=== PATIENT | female | born 1965 | race Hispanic/Latino ===

== ENCOUNTER → 2018-01-16 | Outpatient (CLI) | payer OTHER ==
[~2018-01-16] MED LIST: AA8/1CAP3 PO; AMLO10TA6 PO; ATOR40TA69 PO; CHOL100034 PO; DOXY100T2 PO; FERR-82 PO; GABA-531 PO; INSNOV IVP; INSU100V12 SQ; INSU200I SQ; LEVO125 PO; LISI40TA4 PO; METF-446 PO; OMEP20CA10 PO; RIVA20TA PO; TRAM50TA2 PO
== END | disposition home or self-care (01) ==
LOC: RAH 11:07
PROVIDERS: ATTEND Family Medicine
DX: R60.0 Localized edema (principal); E11.9 Type 2 diabetes mellitus without complications; Z86.718 Personal history of other venous thrombosis and embolism; Z72.89 Other problems related to lifestyle
CPT/HCPCS: 93971

== ENCOUNTER → 2022-02-16 | Outpatient (CLI) | payer BC ==
[~2022-02-16] MED LIST changes: +AMLO-258 PO; -AMLO10TA6 PO; -LISI40TA4 PO; +LISI40TA9 PO; -OMEP20CA10 PO; +OMEP20CA12 PO
== END | disposition home or self-care (01) ==
LOC: RAH 12:41
PROVIDERS: ATTEND Family Medicine
DX: M79.604 Pain in right leg (principal)
CPT/HCPCS: 93971

== ENCOUNTER 2023-04-07 10:52 | Emergency (ER) | payer BC, OTHER ==
[~2023-04-07] VITALS: Ht 167.6 cm; Wt 110.7 kg
[2023-04-07 12:21] LABS: BASOPHILS # (AUTO) 0.06 K/uL (0.00-0.20); BASOPHILS % (AUTO) 0.5 % (0.0-5.0); EOSINOPHILS # (AUTO) 0.06 K/uL (0.00-0.70); EOSINOPHILS % (AUTO) 0.5 % (0.0-8.0); HEMATOCRIT 42.6 % (36-48); IMMATURE GRANULOCYTE ABSOLUTE 0.08 K/uL (0-1); LYMPHOCYTES # (AUTO) 1.5 K/uL (1.0-4.8); LYMPHOCYTES % (AUTO) 11.6 % (21.0-51.0); MEAN CORPUSCULAR HEMOGLOBIN 28.5 pg (27.0-33.0); MEAN CORPUSCULAR HGB CONC 33.6 g/dL (32.0-36.0); MEAN CORPUSCULAR VOLUME 84.9 fL (79-99); MONOCYTES # (AUTO) 0.7 K/uL (0.1-1.0); MONOCYTES % (AUTO) 5.5 % (3.0-13.0); NEUTROPHILS # (AUTO) 10.3 K/uL (1.8-7.7); NEUTROPHILS % (AUTO) 81.3 % (40.0-77.0); PLATELET COUNT (AUTO) 267 K/uL (130-400); RED BLOOD CELL COUNT(AUTO) 5.02 MIL/uL (4.00-5.50); RED CELL DISTRIBUTION WIDTH 14.5 % (11.0-15.5); WHITE BLOOD COUNT (AUTO) 12.6 K/uL (4.8-10.8)
[2023-04-07 12:28] LABS: POTASSIUM 3.4 mmol/L (3.5-5.1)
[2023-04-07 12:33] LABS: ALBUMIN 2.9 g/dL (3.5-5.0); BILIRUBIN,TOTAL 0.8 mg/dL (0.2-1.0); TOTAL PROTEIN, SERUM 8.2 g/dL (6.0-8.3)
[2023-04-07 12:36] LABS: COVID19 (SARS ANTIGEN RAPID) PRESUMPTIVE NEGATIVE (NEGATIVE); INFLUENZA TYPE A Negative For Type A (NEGATIVE); INFLUENZA TYPE B Negative For Type B (NEGATIVE)
[2023-04-07] MEDS ORDERED: IOHEXOL 350 MG/ML 100ML INFUS..BTL IV ONE (14:14)
[2023-04-07] MEDS: KETOROLAC 15MG/ML VIAL (15MG/ML) IV ONE (15:43)
[2023-04-07] MEDS: LACTATED RINGERS 1000ML 1,000 ML IV ONE (15:43)
[2023-04-07 17:15] LABS: ADD UA MICROSCOPIC YES; APPEARANCE,URINE CLEAR (CLEAR); BILIRUBIN,URINE NEGATIVE (NEGATIVE); COLOR,URINE YELLOW (YELLOW); GLUCOSE, URINE (UA) 30 mg/dL (NEGATIVE); KETONES,URINE NEGATIVE (NEGATIVE); LEUKOCYTE ESTERASE ,URINE NEGATIVE Leu/uL (NEGATIVE); NITRATE,URINE NEGATIVE (NEGATIVE); OCCULT BLOOD,URINE MODERATE (NEGATIVE); PROTEIN,URINE 50 mg/dL (NEGATIVE); UROBILINOGEN,URINE 0.2 mg/dL (0.2-1.0)
[2023-04-07 17:17] LABS: BACTERIA,URINE FEW /HPF (None Seen); MUCUS,URINE RARE LPF (None Seen); SQUAMOUS EPITHELIAL CELL,UR RARE /HPF (0-2)
[2023-04-07] MEDS ORDERED: ONDA4TAB10 PO (17:47)
[2023-04-07] MEDS ORDERED: LEVO750T39 PO (17:47)
[2023-04-07 17:52] VITALS: BP 114/82; PULSE 88; RESP 20; O2SAT 99
[2023-04-07] MEDS: LEVOFLOXACIN 750 MG TABLET PO ONE (17:55)
== END 2023-04-07 18:07 | disposition home or self-care (01) ==
LOC: EDH 10:52
DX: N39.0 Urinary tract infection, site not specified (principal); R10.31 Right lower quadrant pain; R11.2 Nausea with vomiting, unspecified; R19.7 Diarrhea, unspecified; E11.9 Type 2 diabetes mellitus without complications; E78.00 Pure hypercholesterolemia, unspecified; I10 Essential (primary) hypertension; E03.9 Hypothyroidism, unspecified; Z79.4 Long term (current) use of insulin; Z79.84 Long term (current) use of oral hypoglycemic drugs; Z79.899 Other long term (current) drug therapy; Z88.0 Allergy status to penicillin; Z20.822 Contact with and (suspected) exposure to COVID-19
CPT/HCPCS: 99285; 74177; 96374; 96361; 87426; 80053; 83690; 85025; 87088; 87804 ×2; 83605; 81001; 36415; J7120; J1885; Q9967

== ENCOUNTER 2024-02-02 21:21 | Emergency (ER) | payer BC, OTHER ==
[~2024-02-02] VITALS: Ht 167.6 cm; Wt 106.6 kg
[~2024-02-02 21:21] MED LIST changes: +LEVO750T40 PO; +ONDA-243 PO
[2024-02-02] MEDS ORDERED: GLIM2TAB30 PO (21:52)
[2024-02-02] MEDS ORDERED: TIRZ2.5P SQ (21:52)
[2024-02-02] MEDS ORDERED: INSU3INS3 SQ (21:52)
[2024-02-02] MEDS ORDERED: LOSA100T59 PO (21:52)
[2024-02-02] MEDS ORDERED: SOLI5 PO (21:52)
[2024-02-02] MEDS ORDERED: PITA2TAB2 PO (21:52)
[2024-02-02] MEDS ORDERED: ACET-2079 PO (21:52)
[2024-02-02] MEDS ORDERED: TRAM100C3 PO (21:52)
--- NOTE | 2024-02-02 21:52 | NUR ---
MED REC DONE AT THIS TIME.
[2024-02-02 21:55] LABS: BASOPHILS # (AUTO) 0.05 K/uL (0.00-0.20); BASOPHILS % (AUTO) 0.5 % (0.0-5.0); EOSINOPHILS # (AUTO) 0.28 K/uL (0.00-0.70); EOSINOPHILS % (AUTO) 3.1 % (0.0-8.0); HEMATOCRIT 39.5 % (36-48); IMMATURE GRANULOCYTE ABSOLUTE 0.04 K/uL (0-1); LYMPHOCYTES # (AUTO) 2.6 K/uL (1.0-4.8); LYMPHOCYTES % (AUTO) 27.9 % (21.0-51.0); MEAN CORPUSCULAR HEMOGLOBIN 29.2 pg (27.0-33.0); MEAN CORPUSCULAR HGB CONC 33.2 g/dL (32.0-36.0); MEAN CORPUSCULAR VOLUME 88.2 fL (79-99); MONOCYTES # (AUTO) 0.4 K/uL (0.1-1.0); MONOCYTES % (AUTO) 4.5 % (3.0-13.0); NEUTROPHILS # (AUTO) 5.8 K/uL (1.8-7.7); NEUTROPHILS % (AUTO) 63.6 % (40.0-77.0); PLATELET COUNT (AUTO) 268 K/uL (130-400); RED BLOOD CELL COUNT(AUTO) 4.48 MIL/uL (4.00-5.50); RED CELL DISTRIBUTION WIDTH 14.2 % (11.0-15.5); WHITE BLOOD COUNT (AUTO) 9.2 K/uL (4.8-10.8)
[2024-02-02 21:59] LABS: POTASSIUM 3.6 mmol/L (3.5-5.1)
[2024-02-02] MEDS ORDERED: IOHEXOL 350 MG/ML 100ML INFUS..BTL IV ONE (22:36)
[2024-02-02] MEDS: INSULIN humuLIN R 100 UNIT/ML 3ML IV STA (23:16)
--- NOTE | 2024-02-02 23:23 | HMCIMG ---
CT CHEST PE PROTOCOL WWO CONT HISTORY: No additional history given. COMPARISON: None TECHNIQUE: CT angiography of the chest was performed. The study was performed using angiographic technique with maximum intensity projection reconstruction images. Patient was given 100 cc of Omnipaque through intravenous route. FINDINGS: No CT evidence of filling defect is seen to suggest pulmonary embolus. No CT evidence of aortic dissection is seen. Prominent interstitial markings are seen. No evidence of parenchymal disease is seen. No CT evidence of pleural effusion or pericardial effusion is seen. The heart is enlarged. A small hiatal hernia is seen. No evidence of adrenal mass is seen. Degenerative changes of the spine are noted. IMPRESSION: 1. No CT evidence of acute pulmonary embolus is seen. CT was performed with one or more following dose reduction techniques: automated exposure control, adjustment of the mA and kv according to patient's size, or use of a iterative reconstruction technique.
--- NOTE | 2024-02-02 23:26 | HMCIMG ---
US VENOUS DOPPLER UNILATERAL HISTORY: Right lower extremity swelling COMPARISON: 02/16/2022 TECHNIQUE: Right lower extremity venous Doppler ultrasound study was performed. FINDINGS: The right common femoral, femoral, popliteal, and posterior tibial veins are visualized. Normal flow with augmentation and compressibilities are demonstrated. Right greater saphenous vein is patent. There are right inguinal lymph nodes with the largest measuring 4.8 x 1.4 x 2.9 cm. IMPRESSION: 1. No evidence of deep venous thrombosis is seen.
[2024-02-03 00:51] VITALS: BP 132/65; PULSE 78; RESP 21; TEMP 98.1; O2SAT 98
--- NOTE | 2024-02-03 00:52 | ERN ---
ED Note History of Present Illness Stated Complaint: RT LEG SWELLING, BACK PAIN Chief Complaint: Multiple Complaints Time Seen by MD: 21:26 Time Seen by Midlevel: 21:30 Dictation: 58-year-old female that came in complaining of right lower leg pain and minimal swelling onset couple of days ago. Patient has a history of ex vacuo in his on Xarelto as concern for clots asked that she has a history of DVTs and PEs. Patient also states when she takes a deep breath she has pain in her mid back area. Denies any shortness of breath, chest pain, nausea, vomiting, diarrhea. Allergies: Coded Allergies: Penicillins (Unverified Allergy, Severe, HIVES, 07/04/15) Home Meds Reported Medications Glimepiride (Glimepiride) 2 Mg Tablet, 1 TAB PO DAILY for 30 Days, #30 TAB 0 Refills 02/02/24 Acetaminophen with Codeine (Acetaminophen-Cod #3 Tablet) 300 Mg-30 Mg Tablet, 1 TAB PO Q6HPRN PRN for pain for 7 Days, #28 TAB 0 Refills 02/02/24 Losartan Potassium (Losartan Potassium) 100 Mg Tablet, 100 TAB PO DAILY for 30 Days, #30 TAB 0 Refills 02/02/24 Tirzepatide (Mounjaro) 2.5 Mg/0.5 Ml Pen.injctr, 2.5 MG SQ QWEEK 02/02/24 Pitavastatin Calcium (Livalo) 2 Mg Tablet, 1 TAB PO DAILY for 30 Days, #30 TAB 0 Refills 02/02/24 Insulin Glargine,Hum.rec.anlog (Lantus Solostar) 100 Unit/Ml (3 Ml) Insuln.pen, 85 UNIT SQ DAILY, SYRINGE 02/02/24 Solifenacin Succinate (Vesicare) 5 Mg Tablet, 5 MG PO DAILY, TAB 02/02/24 Tramadol HCl (Tramadol HCl ER) 100 Mg Cpbp.25.75, 50 MG PO Q6HPRN PRN for PAIN LEVEL 5 TO 10 02/02/24 Cholecalciferol (Vitamin D3) (Vitamin D3) 1,000 Unit Tab.chew, 1000 UNIT PO DAILY, TAB.CHEW 05/18/16 Metformin HCl (Metformin HCl) 1,000 Mg Tablet, 1000 MG PO BID, TAB 07/04/15 Rivaroxaban (Xarelto) 20 Mg Tablet, 20 MG PO DAILYBKFST, TAB 07/04/15 Ferrous Sulfate (Iron) 325 Mg Tablet, 325 MG PO DAILY, TAB 07/04/15 Amlodipine Besylate (Amlodipine Besylate) 10 Mg Tablet, 10 MG PO DAILY, TAB 07/04/15 Levothyroxine Sodium (Levothroid/Synthroid) 125 Mcg Tab, 175 MCG PO ACBKFST, TAB 07/04/15 Discontinued Reported Medications Insulin Lispro (Humalog Kwikpen) 200 Unit/1 Ml Insuln.pen, 20 UNIT SQ TID, SYRINGE 05/18/16 Gabapentin (Gabapentin) 300 Mg Capsule, 300 MG PO DAILY AT HS, CAP 05/18/16 Insulin Aspart (Novolog) 100 Units/Ml Inj, 15 UNITS IVP TIDAC, ML 07/04/15 Insulin Detemir (Levemir) 100 Unit/1 Ml Vial, 50 UNIT SQ HS, VIAL 07/04/15 Omeprazole (Omeprazole) 20 Mg Capsule.dr, 20 MG PO DAILY, CAP 07/04/15 Atorvastatin Calcium (LIPITOR) 40 Mg Tablet, 40 MG PO HS, TAB 07/04/15 Lisinopril (Lisinopril) 40 Mg Tablet, 40 MG PO DAILY, TAB 07/04/15 Aa8/A-Carnitin/Grp/Leeper/Hc126 (Gabadone Capsule) 1 Each Capsule, 1 EACH PO HS, CAP 07/04/15 Discontinued Scripts Ondansetron (Ondansetron Odt) 4 Mg Tab.rapdis, 4 MG PO Q6HPRN PRN for nausea, #12 TAB 0 Refills Prov:LINNEA AL MD 04/07/23 Levofloxacin (Levofloxacin) 750 Mg Tablet, 750 MG PO DAILY for 4 Days, #4 TAB Prov:LINNEA AL MD 04/07/23 Doxycycline Hyclate (Doxycycline Hyclate) 100 Mg Tablet, 100 MG PO BID, #10 TAB Prov:ROMULO PEDERSEN MD 05/19/16 Tramadol HCl (Ultram) 50 Mg Tab, 25 MG PO Q6H PRN for PAIN, #15 TAB Prov:LOREN MAK MD 07/04/15 Past Medical History Past Medical History: Diabetes-Type I, Diabetes-Type II, DVT, High Cholesterol, Hypertension, Hypothyroid, MRSA, Other Additional Past Medical Hx: P.E, FACTOR 5 Surgical History: Other, Surgical History Other: RT OVERY Review of System Dictation Constitutional: Negative for fever,chills, and weight loss Eyes: Negative for injury, pain,redness, and discharge ENT: Negative for injury,pain or swelling Cardiovascular: Negative for chest pain, palpitations, and edema Respiratory: Negative for shortness of breath, cough, and wheezing, Abdomen/GI: Negative for abdominal pain, nausea, vomiting, diarrhea, and constipation Back: Negative for injury and pain : Negative for injury, bleeding and discharge MS/Extremity: Negative for injury and deformity right lower extremity pain Skin: Negative for rash, and discoloration Neuro: Negative for headache, weakness, numbness, tingling, and seizure Psych: Negative for suicide ideation, homicidal ideation, and hallucinations Review of Systems: was completed Initial Vital Sign VS Vital Signs Date Time Temp Pulse Resp B/P (MAP) Pulse Ox O2 Delivery O2 Flow Rate FiO2 02/02/24 21:23 97.9 87 20 137/76 100 Room Air 02/02/24 21:35 0 21 Physical Exam Dictation General: awake, alert, NAD Head/Face: Normocephalic, atraumatic Eyes: PERRL, EOMI, vision at baseline ENT: oral cavity clear, TMs clear, no signs of infection Neck: Trachea midline, supple, no nuchal rigidity Cardiovascular: RRR, normal S1/S2, No MRGs, no JVD Respiratory: CTAB, no respiratory distress, No rales or wheezes Abdomen: Soft, non-tender, non-distended, normal bowel sounds, no guarding or rebound. Skin: Warm, dry, normal turgor, no rash MS/Extremity: Pulses equal, no cyanosis, neurovascular intact, FROM, erythema and minimal swelling noted to the right lower inner tib-fib. No evidence of any insect bite, lesions, rash. Neuro: COAx4, GCS 15, strength 5/5, CN 2-12 intact, normal cerebellar exam, normal gait, Psych: Normal behavior, mood, and affect normal Results (Laboratory/Radiology) Laboratory/Radiology Laboratory Tests Test 02/02/24 21:39 02/03/24 00:12 02/03/24 00:16 White Blood Count 9.2 K/uL (4.8-10.8) Red Blood Count 4.48 MIL/uL (4.00-5.50) Hemoglobin 13.1 g/dL (12.0-16.0) Hematocrit 39.5 % (36-48) Mean Corpuscular Volume 88.2 fL (79-99) Mean Corpuscular Hemoglobin 29.2 pg (27.0-33.0) Mean Corpuscular Hemoglobin Concent 33.2 g/dL (32.0-36.0) Red Cell Distribution Width 14.2 % (11.0-15.5) Platelet Count 268 K/uL (130-400) Mean Platelet Volume 10.7 fL (7.5-10.5) H Immature Granulocyte % (Auto) 0.4 % (0-1) Neutrophils (%) (Auto) 63.6 % (40.0-77.0) Lymphocytes (%) (Auto) 27.9 % (21.0-51.0) Monocytes (%) (Auto) 4.5 % (3.0-13.0) Eosinophils (%) (Auto) 3.1 % (0.0-8.0) Basophils (%) (Auto) 0.5 % (0.0-5.0) Neutrophils # (Auto) 5.8 K/uL (1.8-7.7) Lymphocytes # (Auto) 2.6 K/uL (1.0-4.8) Monocytes # (Auto) 0.4 K/uL (0.1-1.0) Eosinophils # (Auto) 0.28 K/uL (0.00-0.70) Basophils # (Auto) 0.05 K/uL (0.00-0.20) Absolute Immature Granulocyte (auto 0.04 K/uL (0-1) Nucleated Red Blood Cells 0.0 % (0.0-0.19) Sodium Level 136 mmol/L (136-145) Potassium Level 3.6 mmol/L (3.5-5.1) Chloride Level 100 mmol/L (101-111) L Carbon Dioxide Level 32 mmol/L (21-32) Blood Urea Nitrogen 18 mg/dL (7-18) Creatinine 1.0 mg/dL (0.5-1.0) Glomerular Filtration Rate Calc 64 mL/min (>90) Random Glucose 291 mg/dL (70-105) H Total Calcium 9.3 mg/dL (8.5-10.1) Whole Blood Glucose 139 MG/DL (70-110) H Troponin I High Sensitivity 9 ng/L (4-50) Labs Reviewed?: Yes EKG Comment: Date:02/03/24 Time:0022 Ventricular rate:67 FL interval:67 QRS duration:47 QT/QTc:377/397 EKG interpretation: Sinus rhythm, borderline prolonged FL interval, low voltage, precordial leads Reviewed by ED Attending no STEMI interpreted by ER MD Ultrasound Comment: [facility] [address] [id number] IMAGING REPORT Signed PATIENT: TOO CONCEPCION MR#: [id number] : 1965 SEX: F AGE: 58 LOCATION: [facility] ORDER 46 STATUS: REG ER REPORT#: [id number] SERVICE 44 REASON: right leg swelling and pain, history of DVTs ORDERING PHYSICIAN: LILO SAUNDERS NP PROCEDURE: VENOUS UNI - US VENOUS DOPPLER UNILATERAL US VENOUS DOPPLER UNILATERAL HISTORY: Right lower extremity swelling COMPARISON: 02/16/2022 TECHNIQUE: Right lower extremity venous Doppler ultrasound study was performed. FINDINGS: The right common femoral, femoral, popliteal, and posterior tibial veins are visualized. Normal flow with augmentation and compressibilities are demonstrated. Right greater saphenous vein is patent. There are right inguinal lymph nodes with the largest measuring 4.8 x 1.4 x 2.9 cm. IMPRESSION: 1. No evidence of deep venous thrombosis is seen. DICTATED BY: LYN SÁNCHEZ MD DATE: 02/02/242321 ELECTRONICALLY SIGNED BY: LYN SÁNCHEZ MD DATE: 02/02/242325 CT Scan Comment: [facility] [address] [id number] IMAGING REPORT Signed PATIENT: TOO CONCEPCION MR#: [id number] : 1965 SEX: F AGE: 58 LOCATION: [facility] ORDER 27 STATUS: REG ER REPORT#: [id number] SERVICE 26 REASON: RULE OUT PE ORDERING PHYSICIAN: LILO SAUNDERS NP PROCEDURE: CHES PE - CT CHEST PE PROTOCOL WWO CONT CT CHEST PE PROTOCOL WWO CONT HISTORY: No additional history given. COMPARISON: None TECHNIQUE: CT angiography of the chest was performed. The study was performed using angiographic technique with maximum intensity projection reconstruction images. Patient was given 100 cc of Omnipaque through intravenous route. FINDINGS: No CT evidence of filling defect is seen to suggest pulmonary embolus. No CT evidence of aortic dissection is seen. Prominent interstitial markings are seen. No evidence of parenchymal disease is seen. No CT evidence of pleural effusion or pericardial effusion is seen. The heart is enlarged. A small hiatal hernia is seen. No evidence of adrenal mass is seen. Degenerative changes of the spine are noted. IMPRESSION: 1. No CT evidence of acute pulmonary embolus is seen. CT was performed with one or more following dose reduction techniques: automated exposure control, adjustment of the mA and kv according to patient's size, or use of a iterative reconstruction technique. DICTATED BY: LYN SÁNCHEZ MD DATE: 02/02/242319 ELECTRONICALLY SIGNED BY: LYN SÁNCHEZ MD DATE: 02/02/242322 ED Course ED Course Orders Procedure Category Date Status Time Cbc With Differential LAB 02/02/24 Complete 21:45 Basic Metabolic Panel LAB 02/02/24 Complete 21:45 Us Venous Doppler US 02/02/24 Resulted Unilateral 21:45 Ct Chest Pe Protocol CT 02/02/24 Resulted Wwo Cont 22:27 Insulin Regular, PHA 02/02/24 Complete Human 3ml (Humulin R 22:34 Iohexol (Omnipaque) PHA 02/02/24 Complete 22:36 12 Lead Ekg Tracing- EKG 02/03/24 Logged Technical 00:14 Troponin I High LAB 02/03/24 Complete Sensitivity 00:14 Current Medications Medications (Trade) Dose Ordered Sig/Conor Route PRN Reason Start Time Stop Time Status Last Admin Dose Admin Insulin Human Regular (humuLIN R 100 UNIT/ML 3ML) 5 unit ONCE STAT IV 02/02/24 22:34 02/02/24 22:39 DC 02/02/24 23:16 Iohexol (Omnipaque) 35,000 mg STK-MED ONCE IV 02/02/24 22:36 02/02/24 22:36 DC Vital Signs Date Time Temp Pulse Resp B/P (MAP) Pulse Ox O2 Delivery O2 Flow Rate FiO2 02/03/24 00:51 98.1 78 21 132/65 98 Room Air* 0 02/03/24 00:07 67 19 132/70 98 Room Air* 0 21 02/02/24 23:30 64 20 123/64 98 Room Air* 0 02/02/24 21:35 98.2 75 19 140/65 99 Room Air* 0 02/02/24 21:23 97.9 87 20 137/76 100 Room Air Medical Decision Making MDM MDM: 58-year-old female that came in complaining of right lower leg pain and minimal swelling onset couple of days ago. Patient has a history of ex vacuo in his on Xarelto as concern for clots asked that she has a history of DVTs and PEs. Patient also states when she takes a deep breath she has pain in her mid back area. Denies any shortness of breath, chest pain, nausea, vomiting, diarrhea.CBC shows no leukocytosis, no anemia, no thrombocytopenia. Chemistry shows no electrolyte abnormality. Glucose shows today one, 5 units of insulin given ER, the patient was 139. Troponin is negative. EKGs not show any ST elevation or dysrhythmias. Differential diagnosis: DVT, cellulitis, PE, diabetic neuropathy Rationale: Tests considered and ordered secondary to shared decision making include: Previous outside records reviewed: Old ER visits. Risk of complication and/or morbidity or mortality of patient management: None Medications-Per medication reconciliation Need for hospitalization: Patient does not meet criteria for hospitalization. Need for emergency major/minor surgery: No There are no social concerns with this patient. Prescription drug management Prescriptions will include symptomatic care Patient's prior external medical records from other ER visits were reviewed by me as indicated. Prior testing and results from previous visits were reviewed. Prior tests were taken into account with medical decision making and resource utilization, independent historian/historians were used to obtain complete medical history. I independently interpreted the test that were performed, results were reviewed by me and considered findings on radiology if ordered. Medical management and examination interpretation discussions were had by me with other qualified healthcare professionals as indicated for the patient's care. DX & DISP Disposition: Discharge Departure Impression: Primary Impression: Cellulitis Condition: Stable Scripts Sulfamethoxazole/Trimethoprim (Bactrim Ds Tablet) 800 Mg-160 Mg Tablet 1 TAB PO BID for 7 Days, #14 TAB 0 Refills Prov: LILO SAUNDERS NP 02/03/24 Additional Instructions: if the area worsens, return to ER. Follow up with PCP in 1-2 days. Referrals: TREVOR BENJAMIN MD (PCP) Time of Disposition: 01:07 I have reviewed the case, and I agree with, Diagnosis and Plan LILO SAUNDERS NP Feb 03, 2024 00:52
[2024-02-03] MEDS ORDERED: SULF1TAB42 PO (01:07)
--- NOTE | 2024-02-03 19:53 | EKG ---
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
== END 2024-02-03 01:13 | disposition home or self-care (01) ==
LOC: EDH 21:21
DX: L03.115 Cellulitis of right lower limb (principal); M79.604 Pain in right leg; E03.9 Hypothyroidism, unspecified; E11.9 Type 2 diabetes mellitus without complications; E78.00 Pure hypercholesterolemia, unspecified; I10 Essential (primary) hypertension; Z79.4 Long term (current) use of insulin; Z79.84 Long term (current) use of oral hypoglycemic drugs; Z79.85 Long-term (current) use of injectable non-insulin antidiabetic drugs; Z79.899 Other long term (current) drug therapy; Z88.0 Allergy status to penicillin
CPT/HCPCS: 99285; 96374; 71270; 93971; 84484; 80048; 85025; 82948; 36415; 93005; J1815; Q9967